=== PATIENT | female | born 1970 | race Caucasian/White ===

== ENCOUNTER → 2020-03-03 | Outpatient (CLI) | payer OTHER ==
--- NOTE | 2020-03-03 17:18 | KCIC ---
EXAM: Thyroid sonogram. HISTORY: Thyroid nodule. TECHNIQUE: Sonographic imaging of the thyroid was performed. COMPARISON: None. FINDINGS: The right thyroid lobe measures 6.3 x 2.3 x 1.5 cm. The left thyroid lobe measures 6.0 x 2.4 x 2.0 cm. The thyroid isthmus measures 4.1 mm. The thyroid parenchyma is diffusely heterogeneous and contains multiple nodules and cysts. Within the right thyroid lobe, there is a circumscribed hypoechoic nodule within the superior left thyroid lobe measuring 10 x 8 x 6 mm. There is a solid hypoechoic to isoechoic nodule within the mid right thyroid lobe measuring 8 x 7 x 7 mm. There is a cyst within the inferior right thyroid lobe measuring 8 x 6 x 7 mm. There is a circumscribed hypoechoic nodule with eccentric echogenic focus possibly due to microcalcification within the right thyroid lobe measuring 9 x 7 x 9 mm. Within the left thyroid lobe, there is a dominant heterogeneous hypoechoic nodule measuring 18 x 13 x 12 mm. There is a circumscribed hypoechoic nodule within the inferior left thyroid lobe measuring 12 x 10 x 9 mm. There is a similar-appearing hypoechoic nodule within the superior left thyroid lobe measuring 10 x 9 x 9 mm. IMPRESSION: 1. Enlarged heterogeneous thyroid. 2. Multiple thyroid nodules.The largest nodule is seen within the left thyroid lobe measuring 18 mm (TI-RADS 4). This meets criteria for fine-needle aspiration. The additional nodules merit sonographic follow-up based on imaging features. Electronically signed by: Sparkle lPeitez MD (03/03/2020 5:15 PM) [id number]
== END ==
LOC: KCIC US 15:27
PROVIDERS: ATTEND Internal Medicine
DX: E04.1 Nontoxic single thyroid nodule (principal)
CPT/HCPCS: 76536

== ENCOUNTER → 2020-03-21 | Outpatient (CLI) | payer OTHER ==
--- NOTE | 2020-03-22 08:22 | RAD ---
EXAM: ULTRASOUND-GUIDED THYROID FINE-NEEDLE ASPIRATION. HISTORY: Thyroid nodule. Ultrasound-guided biopsy is requested. FINDINGS: The procedure along with its risks and benefits were explained to the patient. They agreed to proceed. A timeout procedure was performed. Sonographic images of the thyroid gland were obtained. The 4.8 cm superficial solid target nodule in the mid left thyroid lobe was adequately visualized for biopsy. The overlying skin was sterilely prepped and infiltrated with 1% lidocaine for local anesthesia. Under ultrasound guidance, 4 aspirates were obtained using 25-gauge needles. These were hand delivered to pathology who determined them adequate for diagnosis. A sterile dressing was placed. There were no immediate complications. IMPRESSION: 1. Successful ultrasound-guided fine-needle aspiration of the left thyroid nodule. Electronically signed by: Madeleine Batres MD (03/22/2020 8:18 AM) [id number]
--- NOTE | 2020-03-22 12:09 | PATHOLOGY ---
Note [facility] Accession Number: [id number] TESTS RESULT FLAG UNITS REF RANGE LAB Clinician Provided Cytology Information No. of containers..01 Other (Miscellaneous) Source: LT MID THYROID DIAGNOSIS: LT MID THYROID NEGATIVE FOR MALIGNANT CELLS. B[place]ES[place] CATEGORY II. SPECIMEN CONSISTS OF BENIGN FOLLICULAR CELLS, HEMOSIDERIN-LADEN MACROPHAGES, COLLOID, AND BLOOD. THIS PATTERN IS CONSISTENT WITH A BENIGN FOLLICULAR NODULE. THIS INTERPRETATION INCLUDES EVALUATION OF A CELL BLOCK. Pathologist ICD10: 02 E04.1 Signed out by: 02 Sameer Rubin MD, Pathologist NPI- [id number] Performed by: Alicia Moeller, Naphthalene Operator ([facility]) Gross description: 01 30ML, CLEAR RED, 2FX 2AD 2H /LCS 03/21/2020 1632 Local FLAG LEGEND: L-Low Normal,H-High Normal,LL-Alert Low,HH-Alert High <-Panic Low,>-Panic High,A-Abnormal,AA-Critical Abnormal Performed at: [facility] [address] [place] [address] Michael Mg MD, [address] [facility] [address] Sameer Rubin MD, Specimen Comment: A courtesy copy of this report has been sent to [phone], [phone] Specimen Comment: [id number], Specimen Comment: [id number] Specimen Comment: Report sent to ,DR MICHAELS / DR CARRILLO Specimen Comment: A duplicate report has been generated due to demographic updates. Performed at: [facility] [id number], [place] [id number] MD Michael Mg MD Phone: [phone]
== END ==
LOC: US 09:56
PROVIDERS: ATTEND Surgery
DX: E04.1 Nontoxic single thyroid nodule (principal)
CPT/HCPCS: 10005; 60300; 76942; 88173; 88305

== ENCOUNTER → 2020-05-24 | Outpatient (CLI) | payer OTHER ==
--- NOTE | 2020-05-24 13:10 | RAD ---
MR#: [id number] Date of Study: 05/24/2020 Ordering Physician: KRISTY FISHER, Referring Physician: KRISTY FISHER, Tech: Jose Soria MBA, RDMS, RVT, RDCS, RTR APPROVED REPORT Patient Location : OUT-PATIENT Indications Lower Extremity Edema : Bilateral Findings Grayscale images of the bilateral saphenofemoral junctions are grossly unremarkable. The right great saphenous vein measures 6.2 mm and the left great saphenous vein measures 5.5 mm. Bi lateral greater and lesser saphenous veins did not show any evidence of reflux. Critical Notification Critical Value: No <Conclusion> 1. Negative for reflux in the bilateral greater and lesser saphenous veins Signed by : Mark Alcantar, Electronically Approved : 05/24/2020 13:09:50
--- NOTE | 2020-05-24 13:13 | RAD ---
MR#: [id number] Date of Study: 05/24/2020 Ordering Physician: KRISTY FISHER, Referring Physician: KRISTY FISHER, Tech: Jose Soria MBA, RDMS, RVT, RDCS, RTR APPROVED REPORT Bilateral Lower Extremity Venous Study for DVT Patient Location: OUT-PATIENT Indications Lower Extremity Edema: Bilateral Vein Imaging (Right) CFV (R): Compressible SFJ (R): Compressible FEM (R): Compressible POP (R): Compressible DFV (R): Compressible PTV (R): Spontaneous GSV (R): Spontaneous Peroneals (R): Spontaneous Vein Imaging (Left) CFV (L): Compressible SFJ (L): Compressible FEM (L): Compressible POP (L): Compressible DFV (L): Compressible PTV (L): Spontaneous GSV (L): Spontaneous Peroneals (L): Spontaneous Doppler Evaluation (Right) CFV (R): Spontaneous POP (R):Spontaneous Doppler Evaluation (Left) CFV (L):Spontaneous POP (L):Spontaneous Findings The bilateral lower extremity deep veins were evaluated for thrombus with color Doppler, spectral and grayscale images. On the right the grayscale images of the common femoral, superficial femoral and popliteal veins do n ot demonstrate any evidence of thrombus and these veins appear to be compressible. The below-knee vei ns were not well visualized but grossly appear to be compressible. Spectral imaging and color Doppler do not reveal any evidence of obstruction to flow with normal respirophasic variation above the knee . Below the knee there is spontaneous flow noted. On the left, the grayscale images of the common femoral, superficial femoral and popliteal veins do n ot demonstrate any evidence of thrombus and these veins appear to be compressible. The below-knee vei ns again were not well visualized but grossly appear to be compressible. Spectral imaging and color D oppler do not reveal any evidence of obstruction to flow with normal respirophasic variation above th e knee. The below-knee veins demonstrate spontaneous flow. Critical Notification Critical Value: No <Conclusion> 1. Negative for DVT in the bilateral lower extremities, technically difficult study. Signed by : Mark Alcantar, Electronically Approved : 05/24/2020 13:12:29
--- NOTE | 2020-05-24 13:14 | RAD ---
MR#: [id number] Date of Study: 05/24/2020 Ordering Physician: KRISTY FISHER, Referring Physician: KRISTY FISHER, Tech: Jose Soria MBA, RDMS, RVT, RDCS, RTR APPROVED REPORT Patient Location: OUT-PATIENT Indications Claudication:Bilaterally VELOCITY AND DOPPLER WAVEFORM ANALYSIS RIGHT cm/secWaveformSeverity LEFT cm/secWaveform Severity dCFA 212.0TriphasicdCFA 184.0Triphasic Prof Fem Art. 102.0BiphasicProf Fem Art. 127.0Biphasic Fem Art Prox. 145.0TriphasicFem Art Prox. 134.0Triphasic Fem Art Mid. 170.0TriphasicFem Art Mid. 128.0Triphasic Fem Art Dist. 109.0TriphasicFem Art Dist. 117.0Triphasic Pop Art(Fossa) 60.0TriphasicPop Art(AK) 60.0Triphasic STILL CLEANER TUBE Prox. 69.0TriphasicPTA Prox. 106.0Triphasic STILL CLEANER TUBE Dist. 67.0TriphasicPTA Dist. 49.0Triphasic DENNIS Prox. 48.0BiphasicATA Prox. 69.0Triphasic DPA 65TriphasicDPA 62Triphasic Findings Grayscale images of the bilateral lower extremity arterial vessels demonstrate mild diffuse atheroscl erotic plaque without any focal obstruction noted. Spectral waveforms are mostly triphasic and biphasic throughout the bilateral lower extremity arteria l vessels from the common femoral artery to the below-knee vessels. There is two-vessel runoff below the knee bilaterally in the form of the anterior and posterior tibial vessels. The bilateral perone al vessels were not well visualized. Overall, no focal obstruction is noted. Critical Notification Critical Value: No <Conclusion> 1. No significant lower extremity arterial disease bilateral Signed by : Mark Alcantar, Electronically Approved : 05/24/2020 13:14:01
== END ==
LOC: US 08:03
PROVIDERS: ATTEND Internal Medicine Cardiovascular Disease
DX: I70.203 Unspecified atherosclerosis of native arteries of extremities, bilateral legs (principal); R60.0 Localized edema
CPT/HCPCS: 93925; 93970